=== PATIENT | female | born 1965 | race Caucasian/White ===

== ENCOUNTER → 2018-03-21 | Day surgery (SDC) | payer BC ==
[~2018-03-21] MED LIST: Midazolam 1 MG/ML 2 ML SDV ONE; Propofol 200 MG/20 ML SDV ONE; Sodium Chloride 0.9% 1,000 ML IV SCH; fentaNYL 100 MCG/2 ML SDV ONE
--- NOTE | 2018-03-21 12:41 | OR ---
DATE OF PROCEDURE: 03/21/2018 PROCEDURE: Colonoscopy. FINDINGS: Normal colonoscopy. PREOPERATIVE DIAGNOSIS: Screening colonoscopy. POSTOPERATIVE DIAGNOSIS: Screening colonoscopy. RISKS: Risks, benefits, alternatives, and limitations including, but not limited to infection, bleeding, and perforation were explained to the patient who wished to proceed. PROCEDURE IN DETAIL: The patient was placed in left lateral decubitus position. Digital rectal exam was performed without abnormality. The scope was introduced and advanced atraumatically to the ileocecal valve. Mild tortuosity noted in the area of the valve of Dixon. The scope was brought back to the ascending, transverse, descending colon, and retroflexed. No evidence of polyps. No old or new blood. No colitis. No diverticulosis. No abnormalities on retroflex. The patient tolerated the procedure well. Brandon Eubanks MD /[id number]
== END ==
LOC: JP.SDS 07:09
PROVIDERS: ATTEND Surgery
DX: Z12.11 Encounter for screening for malignant neoplasm of colon (principal); K21.9 Gastro-esophageal reflux disease without esophagitis; F17.200 Nicotine dependence, unspecified, uncomplicated; F32.9 Major depressive disorder, single episode, unspecified; Z86.711 Personal history of pulmonary embolism
CPT/HCPCS: 45378; J2250; J2704; J3010; J7030

== ENCOUNTER 2021-05-19 07:16 | Emergency (ER) | payer BC ==
[2021-05-19] MEDS ORDERED: Sodium Chloride 0.9% 1,000 ML IV SCH (08:30)
[2021-05-19] MEDS ORDERED: Iopamidol 755 Mg/ML 100 ML Bottle IV ONE (09:05)
[2021-05-19] MEDS ORDERED: Sodium Chloride 0.9% 75 ML IV SCH (09:15)
== END 2021-05-19 10:02 | disposition home or self-care (01) ==
LOC: JP.ED 07:16
DX: R07.89 Other chest pain (principal); F17.210 Nicotine dependence, cigarettes, uncomplicated; Z79.899 Other long term (current) drug therapy
CPT/HCPCS: 36415; 71275; 71275-26; 80048; 85025; 85610; 99282; 99285-25; J3490; J7030; Q9967